=== PATIENT | female | born 1985 | race Caucasian/White ===

== ENCOUNTER 2020-07-14 10:07 | Outpatient (REF) | payer OTHER, SELFPAY | END 2020-07-14 10:08 | disposition home or self-care (01) | LOC: HO.WFDLNP 10:07 | PROVIDERS: Visit Provider Family Medicine | DX: Z20.828 Contact with and (suspected) exposure to other viral communicable diseases (principal) | CPT/HCPCS: U0003 ==

== ENCOUNTER 2020-10-28 13:41 | Outpatient (REF) | payer OTHER, SELFPAY | END 2020-10-28 13:42 | disposition home or self-care (01) | LOC: HO.LAB 13:41 | PROVIDERS: Visit Provider Hospitalist | DX: R51.9 Headache, unspecified (principal); Z20.822 Contact with and (suspected) exposure to COVID-19 | CPT/HCPCS: 36415; U0003; U0005 ==

== ENCOUNTER 2020-11-12 10:38 | Outpatient (REF) | payer OTHER, SELFPAY ==
[2020-11-12 13:31] LABS: Hematocrit 37.2 % (37-47); Hemoglobin 11.8 g/dl (12.0-16.0); Mean Corpuscular HGB Conc 31.7 g/dl (31.0-35.0); Mean Corpuscular Hemoglobin 27.6 pg (27.0-33.0); Mean Corpuscular Volume 86.9 fL (80-98); Mean Platelet Volume 10.7 fL (9.4-12.3); Platelet Count 321 X10*3/uL (160-400); Red Blood Count 4.28 X10*6/uL (4.20-5.50); Red Cell Distribution Width 13.5 % (11.0-16.0); White Blood Count 7.1 X10*3/uL (4.8-10.8)
[2020-11-12 14:00] LABS: Alanine Aminotransferase 14 U/L (0-31); Albumin Level 4.2 g/dL (3.5-5.0); Alkaline Phosphatase 59 U/L (39-117); Anion Gap 13 (12-20); Aspartate Amino Transferase 15 U/L (5-31); Bilirubin Direct 0.3 mg/dL (0.0-0.5); Bilirubin Total 0.7 mg/dL (0.0-1.0); Blood Urea Nitrogen 16 mg/dL (9-16); Calcium 8.8 mg/dL (8.4-10.2); Carbon Dioxide 27 mmol/L (22-29); Chloride 104 mmol/L (96-108); Cholesterol 155 mg/dL; Estimated Glomerular Filt Rate > 60; Glucose Fasting 86 mg/dL (60-99); HDL Cholesterol 45 mg/dL; LDL Cholesterol Calculated 82 mg/dl; Potassium 4.1 mmol/L (3.3-5.1); Sodium 140 mmol/L (135-145); Total Protein 6.6 g/dL (6.5-8.0); Triglycerides 143 mg/dL
[2020-11-12 14:23] LABS: TSH reflex Free T4 0.99 uIU/mL (0.32-4.0)
== END 2020-11-12 10:39 | disposition home or self-care (01) ==
LOC: HO.WFDLDS 10:38
PROVIDERS: Visit Provider Hospitalist
DX: Z00.00 Encounter for general adult medical examination without abnormal findings (principal)
CPT/HCPCS: 36415; 80048; 80061; 80076; 84443; 85027

== ENCOUNTER 2020-11-21 08:18 | Outpatient (REF) | payer OTHER, SELFPAY ==
[2020-11-21 15:11] LABS: CT PCR NOT DETECTED (Not Detect.); NG PCR NOT DETECTED (Not Detect.)
[2020-11-26 02:31] LABS: HPV mRNA E6/E7 rflx Not Detected (Not Detected)
== END 2020-11-21 08:19 | disposition home or self-care (01) ==
LOC: HO.LAB 08:18
PROVIDERS: PCP Hospitalist; Visit Provider Advanced Practice Midwife
DX: Z01.419 Encounter for gynecological examination (general) (routine) without abnormal findings (principal); Z30.011 Encounter for initial prescription of contraceptive pills; Z11.51 Encounter for screening for human papillomavirus (HPV)
CPT/HCPCS: 87491; 87591; 87624; 88142; 99202

== ENCOUNTER 2020-12-31 11:41 | Outpatient (REF) | payer OTHER, SELFPAY ==
[2020-12-31 13:45] LABS: Hematocrit 37.1 % (37-47); Hemoglobin 11.9 g/dl (12.0-16.0); Mean Corpuscular HGB Conc 32.1 g/dl (31.0-35.0); Mean Corpuscular Hemoglobin 28.2 pg (27.0-33.0); Mean Corpuscular Volume 87.9 fL (80-98); Mean Platelet Volume 10.7 fL (9.4-12.3); Platelet Count 383 X10*3/uL (160-400); Red Blood Count 4.22 X10*6/uL (4.20-5.50); Red Cell Distribution Width 13.9 % (11.0-16.0); White Blood Count 8.5 X10*3/uL (4.8-10.8)
== END 2020-12-31 11:42 | disposition home or self-care (01) ==
LOC: HO.WFDLDS 11:41
PROVIDERS: Visit Provider Hospitalist
DX: Z00.00 Encounter for general adult medical examination without abnormal findings (principal)
CPT/HCPCS: 36415; 85027

== ENCOUNTER → 2021-02-25 14:39 | Outpatient (BNVA) | payer OTHER, SELFPAY | PROVIDERS: PCP Hospitalist; Visit Provider Advanced Practice Midwife | DX: Z30.41 Encounter for surveillance of contraceptive pills (principal) | CPT/HCPCS: 99212 ==

== ENCOUNTER 2021-11-18 08:33 | Outpatient (REF) | payer OTHER, SELFPAY ==
[2021-11-18 11:59] LABS: Hematocrit 37.9 % (37.0-47.0); Hemoglobin 12.1 g/dl (12.0-16.0); Mean Corpuscular HGB Conc 31.9 g/dl (31.0-35.0); Mean Corpuscular Volume 87.7 fL (80.0-98.0); Mean Platelet Volume 10.8 fL (9.4-12.3); Platelet Count 378 X10*3/uL (160-400); Red Blood Count 4.32 X10*6/uL (4.20-5.50); Red Cell Distribution Width 13.5 % (11.0-16.0); White Blood Count 8.7 X10*3/uL (4.8-10.8)
[2021-11-18 12:56] LABS: TSH reflex Free T4 1.23 uIU/mL (0.32-4.0)
[2021-11-18 13:25] LABS: Alanine Aminotransferase 29 U/L (0-31); Alkaline Phosphatase 61 U/L (39-117); Anion Gap 10 (12-20); Aspartate Amino Transferase 18 U/L (5-31); Bilirubin Total 0.9 mg/dL (0.0-1.0); Blood Urea Nitrogen 12 mg/dL (9-16); Calcium 9.2 mg/dL (8.4-10.2); Carbon Dioxide 26 mmol/L (22-29); Chloride 106 mmol/L (96-108); Cholesterol 197 mg/dL; Estimated Glomerular Filt Rate > 60; Glucose Fasting 89 mg/dL (60-99); HDL Cholesterol 63 mg/dL; LDL Cholesterol Calculated 104 mg/dl; Potassium 4.1 mmol/L (3.3-5.1); Sodium 138 mmol/L (135-145); Triglycerides 154 mg/dL
[2021-11-22 13:27] LABS: Vitamin D 25-OH, D2 <4 ng/mL; Vitamin D 25-OH, D3 26 ng/mL; Vitamin D 25-OH, Total 26 ng/mL (30-100)
== END 2021-11-18 08:34 | disposition home or self-care (01) ==
LOC: HO.WFDLDS 08:33
PROVIDERS: Visit Provider Hospitalist
DX: Z00.00 Encounter for general adult medical examination without abnormal findings (principal); E55.9 Vitamin D deficiency, unspecified
CPT/HCPCS: 36415; 80053; 80061; 82306; 84443; 85027

== ENCOUNTER 2021-11-25 08:25 | Outpatient (REF) | payer OTHER, SELFPAY ==
[2021-11-25 16:22] LABS: CT PCR NOT DETECTED (Not Detect.); NG PCR NOT DETECTED (Not Detect.)
[2021-11-26 13:09] LABS: BV Int Neg Control Negative (Negative); BV Int Pos Control Positive (Positive)
== END 2021-11-25 08:26 | disposition home or self-care (01) ==
LOC: HO.LAB 08:25
PROVIDERS: PCP Hospitalist; Visit Provider Advanced Practice Midwife
DX: Z01.419 Encounter for gynecological examination (general) (routine) without abnormal findings (principal)
CPT/HCPCS: 87480; 87491; 87510; 87591; 87660

== ENCOUNTER → 2022-02-19 08:47 | Outpatient (BNVA) | payer OTHER, SELFPAY | PROVIDERS: PCP Hospitalist; Visit Provider Advanced Practice Midwife | DX: Z30.430 Encounter for insertion of intrauterine contraceptive device (principal); Z32.02 Encounter for pregnancy test, result negative | CPT/HCPCS: 58300; 81025 ==

== ENCOUNTER → 2022-03-24 14:18 | Outpatient (BNVA) | payer OTHER, SELFPAY | PROVIDERS: PCP Hospitalist; Visit Provider Advanced Practice Midwife | DX: N93.9 Abnormal uterine and vaginal bleeding, unspecified (principal); Z30.431 Encounter for routine checking of intrauterine contraceptive device | CPT/HCPCS: 99212 ==

== ENCOUNTER 2022-11-23 09:06 | Outpatient (REF) | payer OTHER, SELFPAY ==
[2022-11-23 12:02] LABS: Hematocrit 40.8 % (37.0-47.0); Hemoglobin 13.1 g/dl (12.0-16.0); Mean Corpuscular HGB Conc 32.1 g/dl (31.0-35.0); Mean Corpuscular Hemoglobin 28.6 pg (27.0-33.0); Mean Corpuscular Volume 89.1 fL (80.0-98.0); Mean Platelet Volume 10.7 fL (9.4-12.3); Platelet Count 342 X10*3/uL (160-400); Red Blood Count 4.58 X10*6/uL (4.20-5.50); Red Cell Distribution Width 13.3 % (11.0-16.0); White Blood Count 9.2 X10*3/uL (4.8-10.8)
[2022-11-23 12:28] LABS: Cholesterol 172 mg/dL; HDL Cholesterol 55 mg/dL; LDL Cholesterol Calculated 102 mg/dl; TSH reflex Free T4 1.06 uIU/mL (0.32-4.0); Triglycerides 77 mg/dL
[2022-11-27 17:03] LABS: Vitamin D 25-OH, D2 <4 ng/mL; Vitamin D 25-OH, D3 26 ng/mL; Vitamin D 25-OH, Total 26 ng/mL (30-100)
== END 2022-11-23 09:07 | disposition home or self-care (01) ==
LOC: HO.WFDLDS 09:06
PROVIDERS: Visit Provider Hospitalist
DX: E55.9 Vitamin D deficiency, unspecified (principal); Z86.2 Personal history of diseases of the blood and blood-forming organs and certain disorders involving the immune mechanism
CPT/HCPCS: 36415; 80061; 82306; 84443; 85027

== ENCOUNTER → 2022-12-01 12:33 | Outpatient (BNVA) | payer OTHER, SELFPAY | PROVIDERS: PCP Hospitalist; Visit Provider Advanced Practice Midwife ==

== ENCOUNTER 2023-12-07 13:57 | Outpatient (AMB) | payer OTHER, SELFPAY ==
[2023-12-07 14:38] VITALS: BP 90/60; BMI 28.5
--- NOTE | 2023-12-07 14:38 | A.OFFVIS_ITS ---
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 She has not having any problems at all she had this Mirena placed last year she had switched from control pills her. Disappeared about a month after was placed she likes it she is happy with the method she has not having any problems with it whatsoever she has no worries about STDs. 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 She turns 39 in July she will be switching to a new primary care provider this year because her previous 1 is no longer here. She has been walking more to stay healthy. PFSH Family History Mother Diabetes Syncope Migraines Maternal Grandfather Diabetes Prostate cancer Heart problem Social History Household Members: Spouse and Children Housing: House Alcohol intake: never Patient Tobacco Use Status: Never used Tobacco e-Cigarette/Vaping Use: Never Used service: No Current occupational status: employed Cognitive needs: No Hearing needs: No Vision needs: No Female Reproductive History Menstrual Age of Menarche: 11 Duration of menses: <3 days control method: progestin IUCD Total pregnancies: 2 Full term: 2 Date of last pap smear: 11/24/20 (neg,previous pap 2015,neg) History of abnormal pap smear: No Physical Exam Vital Signs: Last Vital Signs BP 90/60 12/07/23 14:38 BMI result Body Mass Index 28.5 Const General: healthy appearing, comfortable, no acute distress, well developed and alert Nutritional Appearance: average body habitus Orientation/consciousness: patient oriented x3 Limitations: no limitations HEENT Head: Yes normocephalic Neck Neck: Yes normal visual inspection Chest Chest palpation & inspection: normal inspection of the chest Breast/axilla inspection: normal inspection of the breasts and normal inspection of the axillae Breast/axilla palpation: normal palpation of the breasts and normal palpation of the axillae Resp Effort & Inspection: normal respiratory effort GI Inspection: Yes normal to inspection, No Abdominal wall edema and No distended Palpation (GI): Soft to palpation and nontender Other: External speculum exam within normal limits. Vagina is pink and moist cervix multiparous today feels midposition and was easy to visualize with very clear almost fertile the appearing mucus. Mirena string is clearly visible in os about 1 cm in length. Uterus is retroverted today mobile nontender note this feels different from last year's exam which is of note but it is within normal limits mobile nontender not enlarged adnexa nontender not enlarged very good tone with Kegel. General: Yes bladder normal to palpation External Female Exam: normal external appearance and normal appearance of the urethra Speculum Exam - Vagina: normal appearance of the vagina, normal palpation and normal vaginal discharge Speculum Exam - Cervix: normal appearance of the cervix, normal palpation and nontender Bimanual exam- vagina & uterus: normal bimanual exam, normal palpation, uterine size normal, bladder normal to palpation, consistency normal, normal palpation, uterine mobility normal, uterine shape normal, No Cervical tenderness present, non-tender and no cervical motion tenderness Bimanual Exam- Adnexa, other: normal adnexae, no masses, normal and No adnexal tenderness Neuro General: patient oriented x3 Results Reviewed Results Reviewed: Previous Paps normal next Pap due 2025 Assessment & Plan Assessment & Plan (1) Encounter for routine checking of intrauterine contraceptive device (IUD): Code(s): Z30.431 - Encounter for routine checking of intrauterine contraceptive device (2) Well woman exam with routine gynecological exam: Code(s): Z01.419 - Encounter for gynecological examination (general) (routine) without abnormal findings (3) Cervical cancer screening: Comment: 11/21/20 pap = neg, neg hpv. Code(s): Z12.4 - Encounter for screening for malignant neoplasm of cervix Plan -----Discussed in this visit the following: healthy balanced diet, regular and consistent exercise, getting recommended health screens, doing the best she can for her particular health concerns, kegel exercises, pap smear screening and followup recommendations, mammography screening and SBE, normal changes in cycles in her life stage--- Reviewed how long the Mirena can be used for review to pay attention to return of her menstrual cycles and when that occurs and that any time after 5 years it might indicate decreased hormonal reserve and function and so would be dimas to consider switching it out at that time even though it can be used for up to 8 years. Reviewed her general health. Mammograms will start after age 40.. Coding Level of Care Code Est Pt Prev Care 18-39y(95453) Diagnoses Encounter for routine checking of intrauterine contraceptive device (IUD) Z30.431 Well woman exam with routine gynecological exam Z01.419 Cervical cancer screening Z12.4
== END 2023-12-07 15:24 | disposition home or self-care (01) ==
PROVIDERS: Visit Provider Advanced Practice Midwife
DX: Z30.431 Encounter for routine checking of intrauterine contraceptive device (principal); Z01.419 Encounter for gynecological examination (general) (routine) without abnormal findings; Z12.4 Encounter for screening for malignant neoplasm of cervix
CPT/HCPCS: 99395

== ENCOUNTER 2023-12-07 13:57 | Outpatient (REF) | payer OTHER, SELFPAY ==
[2023-12-08 14:54] LABS: CT PCR NOT DETECTED (Not Detect.); NG PCR NOT DETECTED (Not Detect.)
[2023-12-09 12:17] LABS: BV Int Neg Control Negative (Negative); BV Int Pos Control Positive (Positive)
== END 2023-12-07 13:58 | disposition home or self-care (01) ==
LOC: HO.LAB 13:57
PROVIDERS: Visit Provider Advanced Practice Midwife
DX: Z01.419 Encounter for gynecological examination (general) (routine) without abnormal findings (principal); Z20.2 Contact with and (suspected) exposure to infections with a predominantly sexual mode of transmission
CPT/HCPCS: 0353U; 87480; 87510; 87660

== ENCOUNTER 2024-02-08 08:37 | Outpatient (AMB) | payer OTHER, SELFPAY ==
--- NOTE | 2024-02-08 08:38 | MHC.PC.OV ---
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 Internal Revenue Required: No Accompanied by: Self / Same As Patient Allergies No Known Allergies [No Known Allergies*] Allergy (Verified 02/08/24 09:10) Medication List - Last Reconciled 02/08/24 by Kathryn Duran MD cholecalciferol (vitamin D3) 50 mcg PO DAILY levonorgestrel (Mirena) intrauterine multivitamin 1 tab PO DAILY Tobacco use date assessed: 02/08/24 Dental Screening Dental Screen Date: 02/08/24 Did you have a dental visit in the last 12 months?: Yes Did you have a dental problem in the last 6 months where you did not have access to dental care?: No Was dental information given to patient?: Patient has dentist HPI HPI Comments History of Present Illness Details This is a 38-year-old female that comes for her physical exam. She has seen her OBGYN this year and Pap smears are up-to-date. No chest pain or shortness on breath. [facility] Medical History (Updated 02/08/24 @ 09:11 by Kathryn Duran MD) Fungal arthritis of upper arm Surgical History No pertinent past surgical history Family History Mother Diabetes Syncope Migraines Maternal Grandfather Diabetes Prostate cancer Heart problem Family/Other Substance use disorder Mental health disorder Social History Household Members: Spouse and Children Housing: House Alcohol intake: never Patient Tobacco Use Status: Never used Tobacco e-Cigarette/Vaping Use: Never Used Second Hand Smoke Exposure: No service: No Current occupational status: employed Current occupational exposures/hazards: No Cognitive needs: No Hearing needs: No Vision needs: No Female Reproductive History Menstrual Age of Menarche: 11 Questionnaire PHQ-9 Over the last 2 weeks, how often have you been bothered by any of the following problems? 1. Little interest or pleasure in doing things: not at all 2. Feeling down, depressed, or hopeless: not at all 3. Trouble falling or staying asleep, or sleeping too much: not at all 4. Feeling tired or having little energy: not at all 5. Poor appetite or overeating: not at all 6. Feeling bad about yourself - or that you are a failure or have let yourself or your family down: not at all 7. Trouble concentrating on things, such as reading the newspaper or watching television: not at all 8. Moving or speaking so slowly that other people could have noticed. Or the opposite - being so fidgety or restless that you have been moving around a lot more than usual: not at all 9. Thoughts that you would be better off or of hurting yourself in some way: not at all Total score: 0 Depression Screening Interpretation: Negative Depression Screening Done: Yes 91574 - PHQ-9 Billing: Yes Source: Developed by Drs. Dov Vazquez, Aniyah Garcia, Darinel Vazquez and colleagues, with an educational ulke from [employer]. Thrive Questionnaire Date Thrive assessed: 02/08/24 I am a: Patient What is your living situation today?: I have a steady place to live Within the past 12 months, did the food you bought not last and you didn't have the money to get more?: Never true Within the past 12 months, did you worry whether your food would run out before you got money to buy more?: Never true Do you have trouble paying for medicines?: No Do you have trouble getting transportation to medical appointments?: No Do you have trouble paying your heating and electricity bill?: No Do you have trouble taking care of your child, family member or friend?: No Do you have trouble with day-to-day activities such as bathing, preparing meals, shopping, managing finances, etc.?: No Are you currently unemployed and looking for a job?: No Are you interested in more education?: No Please select the resources that you would like help with: None Currently or been in a relationship where the following occur: no concerns reported THRIVE Score: 0 AUDIT C Alcohol Use Questionnaire (AUDIT-C) 1. How often do you have a drink containing alcohol?: Never Total Score: 0 Score Reviewed/Action Taken: No RONI-7 AMB Questionnaire RONI-7 Date RONI - 7 assessed: 02/08/24 Feeling nervous, anxious, or on edge: 0 = Not at all Not being able to stop or control worryin = Not at all Worrying too much about different things: 0 = Not at all Trouble relaxin = Not at all Being so restless that it is hard to sit still: 0 = Not at all Becoming easily annoyed or irritable: 0 = Not at all Feeling afraid as if something awful might happen: 0 = Not at all Total RONI-7 score (0-4 normal; 5-9 mild; 10-14 moderate; 15-21 severe): 0 Source: Developed by Drs. Dov Vazquez, Aniyah Garcia, Darinel Vazquez and colleagues, with an educational luke from [employer]. RNOI-7 Assessment Billing RONI-7 Assessment Tool: RONI-7 Assessment 35743 Review of Systems Const All systems reviewed & are unremarkable except as noted in HPI and below Eyes Reports no additional complaints, Denies change in vision and Denies other visual disturbances Card Denies chest pain at rest, Denies chest pain with activity, Denies edema, Denies irregular heart rhythm, Denies claudication, Denies dyspnea, Denies dyspnea on exertion, Denies orthopnea, Denies paroxysmal nocturnal dyspnea and Denies slow heart rate Resp Denies cough, Denies dyspnea and Denies dyspnea on exertion Physical exam (Primary Care) Vital Signs: Last Vital Signs Pulse 78 02/08/24 08:39 BP 100/62 02/08/24 08:39 Pulse Ox 98 02/08/24 08:39 Oxygen Delivery Method Room Air 02/08/24 08:39 BMI result Body Mass Index 26.9 Tobacco/Smoking Status: Tobacco use Status Tobacco use date assessed 02/08/24 02/08/24 08:43 Patient Tobacco Use Status Never used Tobacco 02/08/24 08:43 e-Cigarette/Vaping Use Never Used 02/08/24 08:43 PHQ-9: PHQ-9 Score PHQ-9: Total score 0 02/08/24 08:57 Depression Screening Interpretation: Negative Thrive Assessment: Date of Thrive Assessment Date Thrive assessed 02/08/24 02/08/24 08:43 Currently or been in a relationship where the following occur: no concerns reported Const Orientation/consciousness: patient oriented x3 HENMT Head: Yes normal to inspection, Yes normocephalic and Yes atraumatic Ears: external ears normal Eyes General: appearance normal, both eyes and all related structures Eyelids: Yes eyelids normal Conjunctivae: conjunctivae normal Neck Neck: Yes normal visual inspection and Yes supple Resp Effort & Inspection: normal respiratory effort Auscultation: clear to auscultation bilaterally Cardio Jugular venous distension: no JVD Rate: regular rate Rhythm: regular rhythm Heart sounds: S1 normal heart sound present and S2 normal heart sound present GI Inspection: Yes normal to inspection Palpation (GI): Soft to palpation and nontender Auscultation: normal bowel sounds Skin General skin exam: no rashes or lesions noted Neuro General: patient oriented x3 and no focal motor deficits Extrem General: Yes full ROM Psych Appearance: grossly normal Assessment and Plan Assessment & Plan (1) Physical exam: Code(s): Z00.00 - Encounter for general adult medical examination without abnormal findings Plan: Repeat in a year. Orders: Orders Vitamin D 25-OH Total Today E55.9 - Vitamin D deficiency, unspecified Lipid Panel Today E78.5 - Hyperlipidemia, unspecified, Z00.00 - Encounter for general adult medical examination without abnormal findings Comprehensive [place]. Panel Fast Today Z00.00 - Encounter for general adult medical examination without abnormal findings Coding Level of Care Code Est Pt Prev Care 18-39y(83926) Diagnoses Physical exam Z00.00 Additional Codes RONI-7 Assessment Billing - RONI-7 Assessment Tool: RONI-7 Assessment [id number] ([id number]) Time Spent (min) 29
[2024-02-08 08:39] VITALS: BP 100/62; PULSE 78; O2SAT 98; BMI 26.9
== END 2024-02-08 10:28 | disposition home or self-care (01) ==
LOC: HO.HMGH 08:37
PROVIDERS: PCP Internal Medicine; Visit Provider Internal Medicine
DX: Z00.00 Encounter for general adult medical examination without abnormal findings (principal)
CPT/HCPCS: 99395

== ENCOUNTER 2024-02-13 10:25 | Outpatient (REF) | payer OTHER, SELFPAY ==
[2024-02-13 13:23] LABS: Alanine Aminotransferase 14 U/L (0-31); Albumin Level 4.3 g/dL (3.5-5.0); Alkaline Phosphatase 56 U/L (39-117); Anion Gap 12 (12-20); Aspartate Amino Transferase 15 U/L (5-31); Bilirubin Total 0.9 mg/dL (0.0-1.0); Blood Urea Nitrogen 14 mg/dL (9-16); Calcium 9.3 mg/dL (8.4-10.2); Carbon Dioxide 26 mmol/L (22-29); Chloride 106 mmol/L (96-108); Cholesterol 194 mg/dL (<200); Estimated Glomerular Filt Rate > 60; Glucose Fasting 74 mg/dL (60-99); HDL Cholesterol 52 mg/dL (>40); LDL Cholesterol Calculated 123 mg/dL (<100); Potassium 3.4 mmol/L (3.3-5.1); Sodium 141 mmol/L (135-145); Total Protein 7.1 g/dL (6.5-8.0); Triglycerides 97 mg/dL (<150)
[2024-02-13 13:33] LABS: Vitamin D 25-OH Total 41.4 ng/mL (>30)
== END 2024-02-13 10:26 | disposition home or self-care (01) ==
LOC: HO.WFDLDS 10:25
PROVIDERS: Visit Provider Internal Medicine
DX: Z00.00 Encounter for general adult medical examination without abnormal findings (principal); E55.9 Vitamin D deficiency, unspecified; E78.5 Hyperlipidemia, unspecified
CPT/HCPCS: 36415; 80053; 80061; 82306

== ENCOUNTER 2024-09-19 10:03 | Outpatient (AMB) | payer OTHER, SELFPAY ==
--- NOTE | 2024-09-19 10:26 | A.OFFPC_ITS ---
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 Allergies No Known Allergies [No Known Allergies*] Allergy (Verified 09/19/24 10:26) Medication List - Last Reconciled 09/19/24 by Suzanne Baird PA-C cholecalciferol (vitamin D3) 50 mcg PO DAILY levonorgestrel (Mirena) intrauterine multivitamin 1 tab PO DAILY Tobacco use date assessed: 09/19/24 Dental Screening Dental Screen Date: 09/19/24 Did you have a dental visit in the last 12 months?: Yes Did you have a dental problem in the last 6 months where you did not have access to dental care?: No Was dental information given to patient?: Patient has dentist HPI MICAELA from [facility] HPI Details Patient is a 39-year-old female who presents today to [facility] care. She is transferring internally. She has a significant past medical history vitamin-D deficiency, iron-deficiency anemia and dyslipidemia. No acute concerns today but it is hoping that I will refill her betamethasone cream. CV: Blood pressure today is 92/60. She is not on any antihypertensives. She controls her cholesterol with diet. Derm: sees [facility] intermittently for ezcema. She is hoping that I will refill the betamethasone cream a couple of times a year. Her eczema flares in the winter and summer. She will intermittently get patches on her arms. It is very responsive to betamethasone. Blueprint Duplicator: Has a Mirena in place. Follows with gynecology. Due for a mammogram. Works full-time as a [employer]. [facility] Medical History (Updated 09/19/24 @ 10:41 by Suzanne Baird PA-C) Fungal arthritis of upper arm Surgical History No pertinent past surgical history Family History Mother Diabetes Syncope Migraines Maternal Grandfather Diabetes Prostate cancer Heart problem Family/Other Substance use disorder Mental health disorder Social History (Updated 09/19/24 @ 10:28 by Yasemin Alva CMA) Household Members: Spouse and Children Housing: House Alcohol intake: never Patient Tobacco Use Status: Never used Tobacco e-Cigarette/Vaping Use: Never Used Second Hand Smoke Exposure: No service: No Current occupational status: employed 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 1. Little interest or pleasure in doing things: not at all 2. Feeling down, depressed, or hopeless: not at all 3. Trouble falling or staying asleep, or sleeping too much: not at all 4. Feeling tired or having little energy: not at all 5. Poor appetite or overeating: not at all 6. Feeling bad about yourself - or that you are a failure or have let yourself or your family down: not at all 7. Trouble concentrating on things, such as reading the newspaper or watching television: not at all 8. Moving or speaking so slowly that other people could have noticed. Or the opposite - being so fidgety or restless that you have been moving around a lot more than usual: not at all 9. Thoughts that you would be better off or of hurting yourself in some way: not at all Total score: 0 Depression Screening Interpretation: Negative Depression Screening Done: Yes 00194 - PHQ-9 Billing: Yes Source: Developed by Drs. Dov Vazquez, Aniyah Garcia, Darinel Vazquez and colleagues, with an educational luke from [employer]. Thrive Questionnaire Date Thrive assessed: 09/17/24 I am a: Patient What is your living situation today?: I have a steady place to live Within the past 12 months, did the food you bought not last and you didn't have the money to get more?: Never true Within the past 12 months, did you worry whether your food would run out before you got money to buy more?: Never true Do you have trouble paying for medicines?: No Do you have trouble getting transportation to medical appointments?: No Do you have trouble paying your heating and electricity bill?: Yes Do you have trouble taking care of your child, family member or friend?: No Do you have trouble with day-to-day activities such as bathing, preparing meals, shopping, managing finances, etc.?: No Are you currently unemployed and looking for a job?: No Are you interested in more education?: No Please select the resources that you would like help with: None Currently or been in a relationship where the following occur: No concerns reported THRIVE Score: 1 AUDIT C Alcohol Use Questionnaire (AUDIT-C) 1. How often do you have a drink containing alcohol?: Never 3. How often do you have six or more drinks on one occasion?: Never Total Score: 0 RONI-7 AMB Questionnaire RONI-7 Date RONI - 7 assessed: 09/19/24 Feeling nervous, anxious, or on edge: 1 = Several days Not being able to stop or control worryin = Several days Worrying too much about different things: 1 = Several days Trouble relaxin = Several days Being so restless that it is hard to sit still: 1 = Several days Becoming easily annoyed or irritable: 1 = Several days Feeling afraid as if something awful might happen: 0 = Not at all Total RONI-7 score (0-4 normal; 5-9 mild; 10-14 moderate; 15-21 severe): 6 Source: Developed by Drs. Dov Vazquez, Aniyah Garcia, Darinel Vazquez and colleagues, with an educational luke from [employer]. RONI-7 Assessment Billing RONI-7 Assessment Tool: RONI-7 Assessment 31261 Physical exam (Primary Care) Vital Signs: Last Vital Signs Pulse 78 09/19/24 10:28 BP 92/60 09/19/24 10:28 Pulse Ox 99 09/19/24 10:28 Oxygen Delivery Method Room Air 09/19/24 10:28 BMI result Body Mass Index 26.4 Tobacco/Smoking Status: Tobacco use Status Tobacco use date assessed 09/19/24 09/19/24 10:31 Patient Tobacco Use Status Never used Tobacco 09/19/24 10:31 e-Cigarette/Vaping Use Never Used 09/19/24 10:31 PHQ-9: PHQ-9 Score PHQ-9: Total score 0 09/19/24 10:31 Depression Screening Interpretation: Negative Thrive Assessment: Date of Thrive Assessment Date Thrive assessed 09/17/24 09/19/24 10:31 Currently or been in a relationship where the following occur: No concerns reported Const Orientation/consciousness: patient oriented x3 HENMT Ears: hearing grossly normal bilaterally Neck Thyroid: Thyroid normal Lymphatic: no lymphadenopathy noted Resp Auscultation: clear to auscultation bilaterally Cardio Rate: regular rate Rhythm: regular rhythm Heart sounds: S1 normal heart sound present and S2 normal heart sound present GI Inspection: Yes normal to inspection Palpation (GI): Soft to palpation and Other GI palpation findings present (nontender, no cva tenderness) Auscultation: normoactive bowel sounds Rectal Exam - Female: deferred Skin General skin exam: no rashes or lesions noted Neuro General: patient oriented x3, gait normal and no focal motor deficits Results Reviewed Results Reviewed: Laboratory Tests 11/23/22 02/13/24 09:10 10:26 WBC 9.2 RBC 4.58 Hgb 13.1 Hct 40.8 Plt Count 342 Sodium 141 Potassium 3.4 Chloride 106 Carbon Dioxide 26 Anion Gap 12 BUN 14 Creatinine 0.74 Estimated GFR > 60 Fasting Glucose 74 Calcium 9.3 Total Bilirubin 0.9 AST 15 ALT 14 Alkaline Phosphatase 56 Triglycerides 97 Cholesterol 194 LDL Cholesterol, Calc 123 H HDL Cholesterol 52 25-OH Vitamin D Total 41.4 Coding Level of Care Code Est Pt Level 3 (14782) Complex EM visit Add On G2211 Diagnoses Eczema L30.9 Additional Codes RONI-7 Assessment Billing - RONI-7 Assessment Tool: RONI-7 Assessment 93692 ([id number]) PHQ-9 - 39030 - PHQ-9 Billing: Yes ([id number]) Assessment & Plan Assessment & Plan (1) Eczema: Code(s): L30.9 - Dermatitis, unspecified Category: Medical Plan: Refilled betamethasone cream. Use sparingly. We did discuss that it can cause atrophy of the skin along with hyperpigmentation. Plan Mammogram ordered Orders: Orders MM screening mammo BI Today Z12.31 - Encounter for screening mammogram for malignant neoplasm of breast Medications: New betamethasone dipropionate 0.05% 1 appl topical BID PRN 45 grams 2RF skin irritation
[2024-09-19 10:28] VITALS: BP 92/60; PULSE 78; O2SAT 99; BMI 26.4
--- OUTSIDE RECORDS SUMMARY | 2024-09-19 11:54 | XMS_ITS | Clinical Summary ---
Author Organization [email or web address] [facility] Address [address] [place] [address] Care Team Providers Care Heat Treating Bluer Name Role Phone Unavailable Primary Care Provider Unavailabl e Allergies No known active allergies Medications Multiple Vitamin (multivitamin) tablet Take 1 tablet by mouth Once per day. Active Social History Tobacco Use Types Packs/Day Years Used Date Smoking Tobacco: Never Smokeless Tobacco: Never Tobacco Cessation:Counseling Given: Not Answered Comments Unknown Sex and Gender Information Value Date Recorded Sex Assigned at Female 06/21/2022 10:14 AM EDT Legal Sex Female 10:14 AM EDT Gender Identity Female 06/21/2022 10:14 AM EDT Sexual Orientation Straight 06/21/2022 10 :14 AM EDT Last Filed Vital Signs Vital Sign Reading Time Taken Comments Blood Pressure 100/70 01/11/2024 8:10 AM EDT Pulse - - Temperature - - Respiratory Rate - - Oxygen Saturation - - Inhaled Oxygen Concentration - - Weight - - Height - - Body Mass Index - - Plan of Treatment Upcoming Encounters Date Type Department Care Team (Late st Contact Info) Description 09/26/2024 9:00 AM EST Office Visit [facility] [address], [place] [phone] Arlin Ann [address] [place], [place] [phone] Health Maintenance Due Date Last Done Comments Depression Screening 1984 HIV Screening 1984 SDOH Screening 1984 Alcohol/Substance Use Screening 1996 Family Planning (PISQ) 1999 Hepatitis C Screening 2002 Hepatitis B Vaccines (1 of 3 - 19+ 3-dose series) 2003 Pap Smear 2005 Cervical Cancer Screening 2014 HPV/Cotest 2014 Dental X-Ray: Full Mouth 12/19/2023 12/17/2020 COVID-19 Vaccine ( season) 2024 06/13/2022, 08/01/2021, 01/17/2021, Additional history exists Influenza Vaccine (#1) 2024 06/13/2022 Dental Oral Exam 07/07/2024 01/04/2024, , 12/17/2020 Dental Prophylaxis 07/07/2024 01/04/2024, 0 03/26/2022, 07/31/2021, Additional history exists Mammogram 2024 Tobacco Screening 01/03/2025 01/04/2024 Dental X-Ray: Bitewings 01/04/2025 01/04/20 24, 03/26/2022, 12/17/2020 DTaP/Tdap/Td Vaccines (3 - Td or Tdap) 02/15/2027 02/15/2017, 05/11/2013 Zoster Vaccines (1 of 2) 2034 RSV Patients and Patients Aged 60 years or older (1 - 1-dose 75+ series) 2059 HIB Vaccines Aged Out No longer eligi ble based on patient's age to complete this topic HPV Vaccines Aged Out No longer eligi ble based on patient's age to complete this topic Hepatitis A Vaccines Aged Out No long er eligible based on patient's age to complete this topic IPV Vaccines Aged Out No longer eligi ble based on patient's age to complete this topic Meningococcal Vaccine Aged Out No orlando ted eligible based on patient's age to complete this topic Pneumococcal Vaccine: Pediatrics (0 to 5 Years) and At-Risk Patients (6 to 49) Years) Aged Out No longer eligible based on patient's age to complete this topic RSV under 20 months Aged Out No longe r eligible based on patient's age to complete this topic Rotavirus Vaccines Aged Out No longer eligible based on patient's age to complete this topic Procedures Procedure Name Priority Date/Time Associated Diagnosis Comments Full PROPHYLAXIS - ADULT Routine 024 10:00 AM EDT Dental plaque Dental calculus BITEWINGS - 4 RADIOGRAPHIC IMAGES Routine 01/04/2024 10:00 AM EDT PERIODIC ORAL EVALUATION - ESTABLISHED PATIENT Routine 01/04/2024 10:00 AM EDT Dental plaque Dental calculus Encounter for dental examination Dental caries DIAGNOSTIC - DIAGNOSTIC IMAGING - INTRAORAL - COMPREHENSIVE SERIES OF RADIOGRAPHIC IMAGES Routine 12/17/2020 12:00 AM EDT from Last 3 Months or Most Recently Relevant to Health Maintenance Insurance DENTAL - HSN PARTIAL (MEDICAID)
--- OUTSIDE RECORDS SUMMARY | 2024-09-19 11:54 | XMS_ITS | Encounter Summary ---
Author Organization [facility] [facility] Address [address] [place] [address] Care Team Providers Care Help Aid Name Role Phone Unavailable Primary Care Provider Unavailabl e Encounter Details Date Type Department Care Team (Latest Contact Info) Description 03/26/2022 Abstract [facility] CONVERSIONS Dental, Provider, DDS Social History Tobacco Use Types Packs/Day Years Used Date Smoking Tobacco: Never Assessed Comments Unknown Sex and Gender Information Value Date Recorded Sex Assigned at Female 06/21/2022 10:14 AM EDT Legal Sex Female 10:14 AM EDT Gender Identity Female 06/21/2022 10:14 AM EDT Sexual Orientation Straight 06/21/2022 10 :14 AM EDT documented as of this encounter Plan of Treatment Upcoming Encounters Date Type Department Care Team (Late st Contact Info) Description 09/26/2024 9:00 AM EST Office Visit [facility] D[facility] [address], [place] [phone] Arlin Ann [address] [place] [address] documented as of this encounter Visit Diagnoses Not on filedocumented in this encounter
--- OUTSIDE RECORDS SUMMARY | 2024-09-19 11:54 | XMS_ITS | Encounter Summary ---
Author Organization [employer] [facility] Address [address] [place] [address] Care Team Providers Care Machinist Automotive Name Role Phone Unavailable Primary Care Provider Unavailabl e Encounter Details Date Type Department Care Team (Latest Contact Info) Description 01/07/2021 Abstract [facility] CONVERSIONS Dental, Provider, DDS Social History Tobacco [...] Description 09/26/2024 9:00 AM EST Office Visit [facility] D[facility] [address] [place], [place] [phone] Arlin Ann [address] [place] [address] documented as of this encounter Visit Diagnoses Not on filedocumented in this encounter
== END 2024-09-19 10:51 | disposition home or self-care (01) ==
PROVIDERS: PCP Physician Assistant; Visit Provider Physician Assistant
DX: L30.9 Dermatitis, unspecified (principal)

== ENCOUNTER → 2024-09-19 10:03 | Outpatient (BNVA) | payer OTHER, SELFPAY | PROVIDERS: PCP Physician Assistant; Visit Provider Physician Assistant | DX: L30.9 Dermatitis, unspecified (principal) | CPT/HCPCS: 96127 ==

== ENCOUNTER 2025-01-01 09:30 | Outpatient (AMB) | payer OTHER, SELFPAY ==
--- NOTE | 2025-01-01 09:35 | MHC.OFFVIS ---
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: DIRECTOR SURGICAL annual exam Head Athletic Trainer: Head Athletic Trainer Present (Aide) Accompanied by: Self / Same As Patient Allergies No Known Allergies [No Known Allergies*] Allergy (Verified 01/01/25 09:46) Medication List - Last Reconciled 01/01/25 by Madelyn Valentine CNM betamethasone dipropionate 0.05% 1 appl topical BID PRN cholecalciferol (vitamin D3) 50 mcg PO DAILY levonorgestrel (Mirena) intrauterine multivitamin 1 tab PO DAILY Is last menstrual period known: Yes Last menstrual period: 12/16/24 (Spotting) Post menopausal: No Patient : No HPI HPI DIRECTOR SURGICAL annual exam: Details: Patient is here for obstetrician gynecologist exam she has had the Mirena for almost 2 years now she loves it made a big difference for her with her periods sometimes she gets a little bit of spotting but that is really all. She has a new primary care provider and she is just been seen to get checked for the usual and does not have any special concerns at all and is booked for her 1st mammogram. 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 Current occupational exposures/hazards: Yes Cognitive needs: No Hearing needs: No Vision needs: No Female Reproductive History Menstrual Age of Menarche: 11 Duration of menses: <3 days Date of last menstrual period: 12/16/24 (Spotting) control method: progestin IUCD (Mirena ) Total pregnancies: 2 Full term: 2 Date of last pap smear: 11/21/20 (negative pap smear, negative hpv ) History of abnormal pap smear: No Physical Exam Vital Signs: BMI result Body Mass Index 26.9 Const General: healthy appearing, comfortable, no acute distress, well developed and alert Nutritional Appearance: average body habitus Orientation/consciousness: patient oriented x3 Limitations: no limitations HEENT Head: Yes normocephalic Neck Neck: Yes normal visual inspection Chest Chest palpation & inspection: normal inspection of the chest Breast/axilla inspection: normal inspection of the breasts and normal inspection of the axillae Breast/axilla palpation: normal palpation of the breasts and normal palpation of the axillae Resp Effort & Inspection: normal respiratory effort GI Inspection: Yes normal to inspection, No Abdominal wall edema and No distended Palpation (GI): Soft to palpation and nontender Other: External exam within normal limits vagina is pink and moist clear healthy mucous cervix multiparous pink smooth healthy slight we midposition to anterior with Mirena string visible extending about 1-2 cm, uterus is small retroverted mobile nontender. Adnexa nontender nonenlarged good tone with Kegel. General: Yes bladder normal to palpation External Female Exam: normal external appearance and normal appearance of the urethra Speculum Exam - Vagina: normal appearance of the vagina, normal palpation and normal vaginal discharge Speculum Exam - Cervix: normal appearance of the cervix, normal palpation and nontender Bimanual exam- vagina & uterus: normal bimanual exam, normal palpation, uterine size normal, bladder normal to palpation, consistency normal, normal palpation, uterine mobility normal, uterine shape normal, No Cervical tenderness present, non-tender and no cervical motion tenderness Bimanual Exam- Adnexa, other: normal adnexae, no masses, normal and No adnexal tenderness Neuro General: patient oriented x3 Results Reviewed Results Reviewed: Name: Sherice Lagos Age/Sex: 35/F Attending: Madelyn Valentine CNM : 1985 Submitted by: MemeMadelyn MEGHANA Copies to: Tracey Driver ALFONSO MR #: [id number] Status: DEP REF Collected: 11/21/20 Location: .LAB Received: 11/24/20 Interpretation Satisfactory for evaluation. Negative for intraepithelial lesion or malignancy. HPV mRNA E6/E7: NOT DETECTED This assay detects E6/E7 viral messenger RNA (mRNA) from 14 high-risk HPV types (16, 18, 31, 33, 35, 39, 45, 51, 52, 56, 58, 59, 66, 68) HPV testing performed by [facility], [place], [place]. See reference laboratory portion of the EMR for entire report. Clinical Information LMP: 11/08/20 Previous PAP test: 2015, WNL Material Received ThinPrep Cervical Copies To Madelyn Valentine CNM [address] [place] [address] Dr. Cohen [address] [place] [phone] Driver,Sonia ALFONSO [address] [place], [place] [phone] Electronically Signed By: Maite Piper 12/01/20 8009 The Pap Test is a screening procedure with the inherent possibility of both false negative and false positive results. Results should be interpreted in the context of historic and current clinical findings. Reliability of the Pap Test is enhanced by performing the test on a regular repetitive basis. Patient: Sherice Lagos Page 1 of 1 Assessment & Plan Assessment & Plan (1) Well woman exam with routine gynecological exam: Code(s): Z01.419 - Encounter for gynecological examination (general) (routine) without abnormal findings Category: Medical (2) Cervical cancer screening: Comment: Normal Pap 2015, Pap- with negative HPV, next Pap 2025. Code(s): Z12.4 - Encounter for screening for malignant neoplasm of cervix Category: Medical (3) Presence of 52 mg levonorgestrel-releasing intrauterine device (IUD): Comment: Mirena inserted 02/19/2022, per Radha Nicholas, (mo'b started procedure- unable to straighten axis of retroverted uterus and sound uterus even with dilator.) Code(s): Z97.5 - Presence of (intrauterine) contraceptive device Category: Social Hx (4) Breast cancer screening: Comment: Is scheduled for her 1st mammogram. Code(s): Z12.39 - Encounter for other screening for malignant neoplasm of breast Category: Medical Plan -----Discussed in this visit the following: healthy balanced diet, regular and consistent exercise, getting recommended health screens, doing the best she can for her particular health concerns, kegel exercises, pap smear screening and followup recommendations, mammography screening and SBE, normal changes in cycles in her life stage--- . Reviewed her overall health she manages her allergies and eczema despite even some pet allergies with simple care. She is scheduled for her 1st mammogram. She does not personally experienced breast changes before her menses so does not need to time the mammogram to that. Discussed the Mirena she is very happy with it discussed that it can be used for between 5-8 years she has it in it for control and also to help control her menses discussed the parameters to consider in scheduling replacement including return of menses or any suspicion those return to fertility and optimal replacement would be with menses if they have returned, and the need for protection if suspicious of ovulation . Coding Level of Care Code Est Pt Prev Care 40-64y(03488) Diagnoses Well woman exam with routine gynecological exam Z01.419 Cervical cancer screening Z12.4 Presence of 52 mg levonorgestrel-releasing intrauterine device (IUD) Z97.5 Breast cancer screening Z12.39
[2025-01-01 09:37] VITALS: BMI 26.9
--- OUTSIDE RECORDS SUMMARY | 2025-01-01 10:08 | XMS_ITS | Encounter Summary ---
Author Organization [employer] [facility] Address [address] [place] [address] Care Team Providers Care Curtains And Draperies Salesperson Name Role Phone Unavailable Primary Care Provider Unavailabl e Encounter Details Date Type Department Care Team (Latest Contact Info) Description 01/07/2021 Abstract [facility] CONVERSIONS Dental, Provider, DDS Social History [...] Care Team (Late st Contact Info) Description 04/02/2025 9:00 AM EDT Office Visit [facility] ADULT DENTAL [address] [place] [address] Arlin Ann [address] [place], [place] [phone] documented as of this encounter Visit Diagnoses Not on filedocumented in this encounter
--- OUTSIDE RECORDS SUMMARY | 2025-01-01 10:08 | XMS_ITS | Clinical Summary ---
Author Organization [employer] Address [address] [place] [address] [address] [address] Care Team Providers Care Button Breaker Name Role Phone Unavailable Primary Care Provider Unavailabl e Allergies No known active allergies Medications Multiple Vitamin (multivitamin) tablet Take 1 tablet by mouth Once per day. Active Active Problems Problem Noted Date Diagnosed Date Known health problems: none 10/30/2024 Encounters Date Type Department Care Team Description 10/30/2024 9:00 AM EDT Office Visit [facility] [address] [place], [place] [phone] Krzysztof Dow DMD Known health problems: none (Primary Dx) 10/29/2024 Travel from Last 3 Months Social History Tobacco Use Types Packs/Day Years [...] Sign Reading Time Taken Comments Blood Pressure 124/80 10/30/2024 9:05 AM EDT Pulse 83 09/26/2024 9:06 AM EST Temperature - - Respiratory Rate - - Oxygen Saturation - - Inhaled Oxygen Concentration - - Weight - - Height - - Body Mass Index - - Plan of Treatment Upcoming Encounters Date Type Department Care Team (Late st Contact Info) Description 04/02/2025 9:00 AM EDT Office Visit [facility] ADULT DENTAL [address] [place] [address] Arlin Ann [address] [place] [address] Health Maintenance Due Date Last Done Comments Depression Screening 1984 HIV Screening 1984 SDOH Screening 1984 Alcohol/Substance Use Screening 1996 Family Planning (PISQ) 1999 Hepatitis C Screening 2002 Hepatitis B Vaccines (1 of 3 - 19+ 3-dose series) 2003 Pap Smear 2005 Cervical Cancer Screening 2014 HPV/Cotest 2014 COVID-19 Vaccine ( season) 2024 06/13/2022, 08/01/2021, 01/17/2021, Additional history exists Influenza Vaccine (#1) 2024 06/13/2022 Mammogram 2024 Dental Prophylaxis 03/27/2025 09/26/2024, 0 01/04/2024, 03/26/2022, Additional history exists Dental Oral Exam 05/03/2025 10/30/2024, , 04/08/2022, Additional history exists Tobacco Screening 10/30/2025 10/30/2024 Dental X-Ray: Bitewings 10/31/2025 10/31/19, 01/04/2024, 03/26/2022, Additional history exists DTaP/Tdap/Td Vaccines (3 - Td or Tdap) 02/15/2027 02/15/2017, 05/11/2013 Dental X-Ray: Full Mouth 11/01/2027 10/30/2024, 04/2 03/2021 Zoster Vaccines (1 of 2) 2034 RSV [...] Procedure Name Priority Date/Time Associated Diagnosis Comments CASE PRESENTATION, DETAILED AND EXTENSIVE TREATMENT PLANNING Routine 10/30/2024 9:00 AM EDT INTRAORAL - COMPLETE SERIES OF RADIOGRAPHIC IMAGES Routine 10/30/2024 9:00 AM EDT PERIODIC ORAL EVALUATION - ESTABLISHED PATIENT Routine 10/30/2024 9:00 AM EDT 5 DO COMPOSITE FILLING Routine 5 12:00 AM EDT 4 MO COMPOSITE FILLING Routine 5 12:00 AM EDT PROPHYLAXIS - ADULT Routine 09/26/2024 9 :00 AM EST from Last 3 Months or Most Recently Relevant to Health Maintenance Insurance DENTAL - HSN PARTIAL (MEDICAID)
--- OUTSIDE RECORDS SUMMARY | 2025-01-01 10:08 | XMS_ITS | Encounter Summary ---
Author Organization [employer] [facility] Address [address] [place] [address] Care Team Providers Care Molecular Biology Professor Name Role Phone Unavailable Primary Care Provider Unavailabl e Encounter Details Date Type Department Care Team (Latest Contact Info) Description 03/26/2022 Abstract [facility] CONVERSIONS Dental, Provider, DDS Social History [...] Description 04/02/2025 9:00 AM EDT Office Visit [facility] ADULT DENTAL [address] [place] [address] Arlin Ann [address] [place], [place] [phone] documented as of this encounter Visit Diagnoses Not on filedocumented in this encounter
== END 2025-01-01 11:13 | disposition home or self-care (01) ==
LOC: HO.HWSM 09:30
PROVIDERS: PCP Physician Assistant; Visit Provider Advanced Practice Midwife
DX: Z01.419 Encounter for gynecological examination (general) (routine) without abnormal findings (principal); Z97.5 Presence of (intrauterine) contraceptive device
CPT/HCPCS: 99396; 99459

== ENCOUNTER 2025-02-20 07:41 | Outpatient (REF) | payer OTHER, SELFPAY | END 2025-02-20 07:42 | disposition home or self-care (01) | LOC: HO.MAMMO 07:41 | PROVIDERS: PCP Physician Assistant; Visit Provider Physician Assistant | DX: Z12.31 Encounter for screening mammogram for malignant neoplasm of breast (principal) | CPT/HCPCS: 77063; 77067 ==

== ENCOUNTER → 2025-02-20 07:45 | Outpatient (BNV) | payer OTHER, SELFPAY | PROVIDERS: PCP Physician Assistant; Visit Provider Internal Medicine | DX: Z12.31 Encounter for screening mammogram for malignant neoplasm of breast (principal) | CPT/HCPCS: 77063; 77067 ==